=== PATIENT | male | born 1970 | race Two or more races ===

== ENCOUNTER → 2018-08-06 08:17 | Outpatient (AMBR) | payer MEDICAID, SELFPAY | PROVIDERS: Visit Provider Family Medicine | DX: M54.40 Lumbago with sciatica, unspecified side (principal); G89.29 Other chronic pain; M54.30 Sciatica, unspecified side | CPT/HCPCS: 97110; 97140 ==

== ENCOUNTER 2024-05-29 10:18 | Outpatient (RCR) | payer MEDICAID, SELFPAY ==
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
--- NOTE | 2024-07-08 09:13 | PT.ODS1RPT ---
PT OP Progress/Discharge Note Date of Service: 07/08/24 Progress Note/DC Note Progress Note/Discharge Note: DC Note Patient Information Visit Reasons: Dorsalgia unspecified/other chronic pain Service Discharge Date: 07/08/24 Status Assessment: Pt seen for initial evaluation 05/29/24. At this time Pt will be d/c from care due to non- compliance per attendance policy. Pt did not meet set goals in therapy; thank you for your referrals.
== END 2024-06-13 23:59 | disposition home or self-care (01) ==
LOC: CPTX 10:18
PROVIDERS: PCP Licensed Vocational Nurse; Referring Provider Licensed Vocational Nurse; Visit Provider Licensed Vocational Nurse
DX: M54.50 Low back pain, unspecified (principal)
CPT/HCPCS: 97162

== ENCOUNTER 2025-02-23 04:15 | Emergency (ER) | payer MEDICAID, SELFPAY ==
[2025-02-23 04:15] VITALS: BP 167/84; PULSE 70; RESP 20; TEMP 36.7; O2SAT 98; BMI 24.3
--- NOTE | 2025-02-23 05:14 | EDNOTE_ITS ---
ED Ear RME/HPI General Chief complaint: Ear Stated complaint: RT EARACHE Time Seen by Provider: 02/23/25 04:26 Arrival date/time: 02/23/25 04:15 This is a case of 55-year-old male with no medical history came in in the emergency room due to bilateral ear pain and decreased hearing for 1 week patient was seen by the primary care physician where he was treated with impacted cerumen and otitis media and was given Augmentin which he finished a course of antibiotic and Debrox patient still having pain thus patient decided to sought consult here in the emergency room no ear discharge no tinnitus no dizziness noted Limitations: no limitations Related Data Previous Rx's ?Medication ?Instructions ?Recorded hydrocodone 5 mg-acetaminophen 325 1 tab PO Q6H PRN pa in #12 tabs 02/23/25 mg tablet ofloxacin 0.3 % ear drops 5 drp otic (ear) BID 7 days #10 mL 02/23/25 sulfamethoxazole 800 1 tab PO BID 10 days #20 tab s 02/23/25 mg-trimethoprim 160 mg tablet (Bactrim DS) Allergies Allergy/AdvReac Type Severity Reaction Status Date / Time NKA Allergy Unknown Uncoded 12/19/02 01:04 Review of Systems Review of Systems Systems Reviewed: All systems reviewed, normal except as documented Constitutional Constitutional: Reports system reviewed and no additional complaints, except as documented and Reports as per HPI ENT Ears, Nose, Mouth, and Throat: Reports system reviewed and no additional co mplaints, except as documented and Reports as per HPI Cardiovascular Cardiovascular: Reports system reviewed and no additional complaints, except as documented and Reports as per HPI Respiratory Respiratory: Reports system reviewed and no additional complaints, except as documented and Reports as per HPI Gastrointestinal Gastrointestinal: Reports system reviewed and no additional complaints, except as documented and Reports as per HPI Genitourinary Genitourinary: Reports system reviewed and no additional complaints, except as documented and Reports as per HPI Musculoskeletal Musculoskeletal: Reports system reviewed and no additional complaints, except as documented and Reports as per HPI Neurologic Neurologic: Reports system reviewed and no additional complaints, except as documented and Reports as per HPI Past Medical History Social History SMOKING STATUS: Never smoker ED Exam General Limitations: Present no limitations General appearance: Present alert, in no apparent distress and other (Patient is awake alert oriented not in distress nontoxic looking well-hydrated well- nourished) Head Head exam: Present atraumatic, normocephalic and normal inspection Eye Eye exam: Present normal appearance, PERRL and EOMI ENT ENT exam: Present normal exam, normal oropharynx, mucous membranes moist and other (Nose and throat exam is normal bilateral ear canal noted mildly tender no swelling no foreign body no mastoid tenderness bilaterally impacted cerumen- tympanic membrane unable to visualize after irrigation noted tympanic membrane red retracted bulging but not perforated) Neck Neck exam: Present normal inspection, full ROM and trachea midline; Absent tenderness, meningismus, lymphadenopathy or thyromegaly Chest Chest inspection: Present normal inspection and symmetric chest wall rise; Absent tenderness Respiratory Respiratory exam: Present normal lung sounds bilaterally; Absent respiratory distress, wheezes, stridor, accessory muscle use or prolonged expiratory phase Cardiovascular Cardiovascular exam: Present regular rate, normal rhythm and normal heart sounds Abdominal Exam Abdominal exam: Present soft and normal bowel sounds Extremities Exam Extremities exam: Present normal inspection and full ROM Back Exam Back exam: Present normal inspection and full ROM Neurological Exam Neurological exam: Present alert, oriented X3, CN II-XII intact, normal gait and reflexes normal; Absent motor sensory deficit Psychiatric Psychiatric exam: Present normal affect and normal mood Skin Skin exam: Present warm, dry, intact and normal color Course Quality Measures none Orders Category Date Time Status HYDROcodone*/APAP 5/325 [Arnett 5/325] Med 02/23/25 05:10 Discontinued 1 tab PO X1 ONE cefTRIAXone [Rocephin] 1,000 mg Med 02/23/25 05:10 Discontinued Lidocaine 1% 20 ml [Xylocaine 1% 20 ML] 2.1 ml IM X1 Vital Signs Vital signs: Vital Signs Temperature 98.1 F 02/23/25 04:15 Pulse Rate 70 02/23/25 04:15 Respiratory Rate 20 02/23/25 04:15 Blood Pressure 167/84 H 02/23/25 04:15 Pulse Oximetry (%) 98 02/23/25 04:15 Oxygen Delivery Method Room Air 02/23/25 04:15 Oxygen saturation is 98% in room air Ear MDM Narrative MDM Narrative:: This is a case of 55-year-old male with no medical history came in in the emergency room due to bilateral ear pain and decreased hearing for 1 week patient was seen by the primary care physician where he was treated with impacted cerumen and otitis media and was given Augmentin which he finished a course of antibiotic and Debrox patient still having pain thus patient decided to sought consult here in the emergency room no ear discharge no tinnitus no dizziness noted physical examination patient is awake alert oriented not in distress nontoxic looking well-hydrated well-nourished ear exam noted bilateral ear canal noted mildly tender no swelling impacted cerumen no foreign body unable to visualize tympanic membrane no mastoid tenderness bilaterally ear irrigation was performed patient tolerated well impacted cerumen was completely removed tympanic membrane was red bulging retracted but no perforation at this point patient will be treated as otitis media patient was given a dose of ce ftriaxone IM here in the emergency room and Arnett for pain patient was discharged with Bactrim for 10 days ofloxacin eardrops and Arnett for pain patient was advised to follow-up with PCP in 2 days for reevaluation and if symptoms persist needs to see an ENT specialist for further evaluation and treatment for any worsening symptoms or any emergent concern return precaution in the ER is advised Patient was discharged with comfortable condition walking with stable gait. Patient verbalized no further complains explained diagnosis and answered patient question. Patient is comfortable with the proposed management plan including the need to follow up with his/her primary care physician and any specialist if applicable Discussed patient for any urgent condition or worsening sx, He/She needed to go to emergency room immediately or call 911. Patient acknowledge the responsibility to follow up as instructed and to monitor her/his symptoms. For any persistence of the symptoms for more than 3-5 days return precaution advised. Discussed the result of the test and was given printed discharge instruction Patient data External records reviewed:: [facility] previous records Clinical information provided by:: patient Social determinants that could affect healthcare access:: none Patient has the following chronic illnesses:: None How is presenting disease/condition affected by chronic disease/condition?: no chronic disease Evaluation data The following diagnostics were reviewed and interpreted by me:: other (specify) (None) Lab and/or radiology exams considered but not ordered:: None Interpretation Summary: None Medications / Prescriptions Medications or Prescriptions considered but not ordered:: Given Medication administrations:: Medication Administration History Discontinued Medications Hydrocodone Bitart/Acetaminophen (Hydrocodone/Apap 5/325 Tablet) 1 tab PO X1 ONE Stop: 02/23/25 05:11 Ceftriaxone Sodium 1,000 mg/ (Lidocaine HCl 2.1 ml) 0 mg IM X1 ONE Stop: 02/23/25 05:11 Given Consultations Consultation(s) initiated? (list below): No Diagnosis Ear Differential Diagnosis: otitis externa, otitis media, foreign body in ear, ruptured TM and cerumen impaction Most likely diagnosis given after review of the tests above:: Impacted cerumen otitis media Admission Indicated Admission indicated?: not indicated Explain why admission is indicated or not indicated:: Not indicated Admission Request Was there a request for admission?: No Admission Attestation Admission request attestation: Not indicated Disposition Plan Disposition Plan: Discharge Discharge Attestation Discharge Attestation: The patient and all family members were given an opportunity to ask questions and understood the discharge instructions. Discharge instructions specifically effects, indications for sooner follow up or return to the emergency department, and the expected course of current diagnosis. Patient condition: Stable Discharge Plan Plan Patient Disposition: HOME (Self Care) Patient condition on transfer: Stable Prescriptions/Referrals Prescriptions/Med Rec: New sulfamethoxazole-trimethoprim [Bactrim DS] 800-160 mg tablet 1 tab PO BID 10 Days Qty: 20 0RF hydrocodone-acetaminophen 5-325 mg tablet 1 tab PO Q6H MDD max 4 tabs per day PRN (Reason: pain) Qty: 12 0RF ofloxacin 0.3 % drops 5 drp otic (ear) BID 7 Days Qty: 10 0RF Referrals: Temporary Provider,ED [Primary Care Provider, Emergency Medicine] - In 1 week Problem List Clinical Impression: Otitis media, Bilateral impacted cerumen Patient/Caregiver Discharge Instructions Education Materials: Impacted Earwax, ED Otitis Media Antibiotic ... Additional Instructions: Follow-up with your primary care physician in 2 days for reevaluation worsening symptoms or any emergent concern call 911 or go to the nearest emergency room if symptoms persist need to be referred to ENT for further evaluation and treatment of ear infection take your medication as directed finish the course of antibiotic no Q-tips no cotton balls prevent water to enter both ears is advised Print Language: Micronesian Stand Alone Forms: Ester Award Info., Patient Portal Info Letter PA/SCHOOL INSPECTOR Supervising Physician PA/SCHOOL INSPECTOR Supervising Physician: Dr. Murtaza Carr
[2025-02-23] MEDS: HYDROcodone/APAP 5/325 TABLET 1 TAB PO (05:21)
[2025-02-23] MEDS: cefTRIAXone 1,000 MG, LIDOCAINE 1% 20 ML 2.1 ML IM (05:21)
== END 2025-02-23 05:51 | disposition home or self-care (01) ==
PROVIDERS: Emergency Provider Emergency Medicine
DX: H61.23 Impacted cerumen, bilateral (principal); H66.93 Otitis media, unspecified, bilateral
CPT/HCPCS: 96372; 99283; J0696; J3490; A9270

== ENCOUNTER 2025-02-28 05:10 | Emergency (ER) | payer MEDICAID, SELFPAY ==
[2025-02-28 05:11] VITALS: BMI 24.3
[2025-02-28 05:22] VITALS: BP 154/97; PULSE 85; RESP 18; TEMP 36.7; O2SAT 96
--- NOTE | 2025-02-28 05:37 | EDNOTE_ITS ---
ED Ear RME/HPI General Chief complaint: Ear Stated complaint: LEFT EAR PAIN Time Seen by Provider: 02/28/25 05:29 Arrival date/time: 02/28/25 05:10 54M with no significant PMH presents to ED with worsening BLE ear pain. Patient was here 5 days ago and given Bactrim and ofloxacin drops w/o improvement. Ear irrigation was done during previous visit, and wax could not be removed Limitations: no limitations Related Data Previous Rx's ?Medication ?Instructions ?Recorded hydrocodone 5 mg-acetaminophen 325 1 tab PO Q6H PRN pa in #12 tabs 02/23/25 mg tablet ofloxacin 0.3 % ear drops 5 drp otic (ear) BID 7 days #10 mL 02/23/25 sulfamethoxazole 800 1 tab PO BID 10 days #20 tab s 02/23/25 mg-trimethoprim 160 mg tablet (Bactrim DS) ciprofloxacin HCl 500 mg tablet 500 mg PO BID 7 days # 14 tabs 02/28/25 hydrocortisone-acetic acid 1 %-2 % 5 drp otic (ear) QI D 7 days #10 mL 02/28/25 ear drops Allergies Allergy/AdvReac Type Severity Reaction Status Date / Time prochlorperazine (From Allergy Verified 02/28/25 05:11 Compazine) Review of Systems Review of Systems Systems Reviewed: All systems reviewed, normal except as documented ENT Ears, Nose, Mouth, and Throat: Reports as per HPI, Reports ear discharge and Reports otalgia Past Medical History Social History SMOKING STATUS: Never smoker ED Exam General Limitations: Present no limitations General appearance: Present alert and in no apparent distress Head Head exam: Present atraumatic ENT ENT exam: Present mucous membranes moist Expanded ENT Exam External ear exam: Present external tenderness (bilateral tragal) TM/Canal exam: Bilateral TM: cerumen impaction, canal discharge and canal tenderness Neck Neck exam: Present full ROM, trachea midline and lymphadenopathy (mild) Chest Chest inspection: Present normal inspection and symmetric chest wall rise Neurological Exam Neurological exam: Present alert and oriented X3 Psychiatric Psychiatric exam: Present normal affect and normal mood Skin Skin exam: Present warm, dry, intact and normal color Course Quality Measures none Orders Category Date Time Status Ciprofloxacin HCl [Ciprofloxacin] Med 02/28/25 05:30 Discontinued 500 mg PO X1 ONE Vital Signs Vital signs: Vital Signs Temperature 98.1 F 02/28/25 05:22 Pulse Rate 85 02/28/25 05:22 Respiratory Rate 18 02/28/25 05:22 Blood Pressure 154/97 H 02/28/25 05:22 Pulse Oximetry (%) 96 02/28/25 05:22 Oxygen Delivery Method Room Air 02/28/25 05:22 O2 at 96% on RA and WNLs Ear MDM Narrative MDM Narrative:: 54M with no significant PMH presents to ED with worsening BLE ear pain. Patient was here 5 days ago and given Bactrim and ofloxacin drops w/o improvement. Ear irrigation was done during previous visit, and wax could not be removed Physical exam reveals bilateral tragal tenderness (L>R), with bilateral discharge. Cerumen impactions. TMs cannot be visualized. Some cervical lymph node swelling. Patient is afebrile, calm, and alert. Lymphadenopathy likely reactive to infection. Will replace Bactrim with Cipro to cover for Pseudomonas, and change ofloxacin to acetic acid/HC to cover for both Pseudomonas and fungal etiologies. Patient data External records reviewed:: [facility] previous records Clinical information provided by:: patient Social determinants that could affect healthcare access:: none Patient has the following chronic illnesses:: none How is presenting disease/condition affected by chronic disease/condition?: no chronic disease Evaluation data The following diagnostics were reviewed and interpreted by me:: other (specify) (none) Lab and/or radiology exams considered but not ordered:: not ordered Interpretation Summary: n/a Medications / Prescriptions Medications or Prescriptions considered but not ordered:: ordered Medication administrations:: Medication Administration History Discontinued Medications Ciprofloxacin (Ciprofloxacin Hcl 250 Mg Tablet) 500 mg PO X1 ONE Stop: 02/28/25 05:31 above Consultations Consultation(s) initiated? (list below): No Diagnosis Ear Differential Diagnosis: otitis externa, otitis media, foreign body in ear, ruptured TM and cerumen impaction Most likely diagnosis given after review of the tests above:: cerumen impaction, OE, OM Admission Indicated Admission indicated?: not indicated Admission Request Was there a request for admission?: No Disposition Plan Disposition Plan: Discharge Discharge Attestation Discharge Attestation: The patient and all family members were given an opportunity to ask questions and understood the discharge instructions. Discharge instructions specifically effects, indications for sooner follow up or return to the emergency department, and the expected course of current diagnosis. Patient condition: Stable Discharge Plan Plan Patient Disposition: HOME (Self Care) Discharge Disposition comment: Stable Prescriptions/Referrals Prescriptions/Med Rec: New hydrocortisone-acetic acid 1-2 % drops 5 drp otic (ear) QID 7 Days Qty: 10 0RF ciprofloxacin HCl 500 mg tablet 500 mg PO BID 7 Days Qty: 14 0RF No Action sulfamethoxazole-trimethoprim [Bactrim DS] 800-160 mg tablet 1 tab PO BID 10 Days Qty: 20 0RF hydrocodone-acetaminophen 5-325 mg tablet 1 tab PO Q6H MDD max 4 tabs per day PRN (Reason: pain) Qty: 12 0RF ofloxacin 0.3 % drops 5 drp otic (ear) BID 7 Days Qty: 10 0RF Problem List Clinical Impression: Otitis media, Otitis externa, Bilateral impacted cerumen Patient/Caregiver Discharge Instructions Education Materials: Impacted Earwax, ED Otitis Media Antibiotic ..., ED External Ear Infection (Adult) Additional Instructions: Please follow-up with PCP within 24-48 hours and return immediately if symptoms worsen. Stop taking old ABX and ear drops. Use the new ones. If problem persists, see ENT. Keep drops in ear at least 1 min each time. Print Language: Cypriot Stand Alone Forms: Patient Portal Info Letter HEYDI/TANYA Supervising Physician HEYDI/TANYA Supervising Physician: Dr. Abdi
[2025-02-28] MEDS: CIPROFLOXACIN HCL 250 MG TABLET 500 MG PO (05:43)
== END 2025-02-28 05:50 | disposition home or self-care (01) ==
LOC: SERX 06:35
PROVIDERS: Emergency Provider Emergency Medicine
DX: H60.393 Other infective otitis externa, bilateral (principal); H61.23 Impacted cerumen, bilateral; H66.93 Otitis media, unspecified, bilateral
CPT/HCPCS: 69209; 99282; A9270